=== PATIENT | male | born 1955 | race Caucasian/White ===

== ENCOUNTER 2018-07-29 09:46 | Emergency (ER) | payer BC ==
[~2018-07-29] VITALS: Ht 198.1 cm; Wt 147.4 kg
--- NOTE | 2018-07-29 11:01 | PHYS DOC ---
Past History Past Medical History: A-Fib, CAD, Diabetes Past Surgical History: Pacemaker Alcohol Use: None Drug Use: None Adult General Chief Complaint Chief Complaint: HEAD INJURY/TRAUMA [facility] HPI Patient is a 63 year old male who presents with complaining of head injury and possible TIA. Patient states he hit his back of his head while tried to get inside of a car at his work one week ago without loss of consciousness. Patient complaining of intermittent episodes of occipital headache and dizziness and nausea without confusion, fever and chills, focal neuro deficit, blurred or double vision. Patient also states he had another fall from several stairs 5 weeks ago and almost passed out without seeking medical attention. Patient was seen by his chiropractor regarding chronic neck pain and recommended to come to emergency room for possible TIA because of episodes of dizziness. Review of Systems Review of Systems Constitutional: Denies fever or chills [] Eyes: Denies change in visual acuity, redness, or eye pain [] HENT: Denies nasal congestion or sore throat [] Respiratory: Denies cough or shortness of breath [] Cardiovascular: No additional information not addressed in HPI [] GI: Denies abdominal pain, vomiting, bloody stools or diarrhea [] : Denies dysuria or hematuria [] Musculoskeletal: Denies back pain or joint pain [] Integument: Denies rash or skin lesions [] Neurologic: Reports dizziness and headache, focal weakness or sensory changes [] Endocrine: Denies polyuria or polydipsia [] All other systems were reviewed and found to be within normal limits, except as documented in this note. Allergies Allergies Allergies Coded Allergies Type Severity Reaction Last Updated Verified No Known Drug Allergies 07/29/18 No Physical Exam Physical Exam Constitutional: Well developed, well nourished, no acute distress, non-toxic appearance. [] HENT: Normocephalic, atraumatic, bilateral external ears normal, oropharynx moist, no oral exudates, nose normal. [] Eyes: PERRLA, EOMI, conjunctiva normal, no discharge. [] Neck: Normal range of motion, no tenderness, supple, no stridor. [] Cardiovascular:Heart rate regular rhythm, no murmur [] Lungs & Thorax: Bilateral breath sounds clear to auscultation [] Abdomen: Bowel sounds normal, soft, no tenderness, no masses, no pulsatile masses. [] Skin: Warm, dry, no erythema, no rash. [] Back: No tenderness, no CVA tenderness. [] Extremities: No tenderness, no cyanosis, no clubbing, ROM intact, no edema. [] Neurologic: Alert and oriented X 3, normal motor function, normal sensory function, no focal deficits noted. [] Psychologic: Affect normal, judgement normal, mood normal. [] Current Patient Data Vital Signs Vital Signs Date Time Temp Pulse Resp B/P (MAP) Pulse Ox O2 Delivery O2 Flow Rate FiO2 07/29/18 09:50 97.9 72 16 95 Room Air EKG EKG [] Radiology/Procedures Radiology/[place] [address] IMAGING REPORT Signed PATIENT: MORALES ZHU ACCOUNT: [id number] : 1955 LOCATION: ER AGE: 63 SEX: M EXAM STATUS: REG ER ORD. PHYSICIAN: LOVE BARKSDALE MD REASON: head injury PROCEDURE: CT HEAD WO CONTRAST CT HEAD WO CONTRAST History: Fall 2 weeks ago, continued nausea, dizziness, possible TIA Comparison: None. Technique: Noncontrast CT imaging was performed of the head. Exposure: One or more of the following individualized dose reduction techniques were utilized for this examination: 1. Automated exposure control 2. Adjustment of the mA and/or kV according to patient size 3. Use of iterative reconstruction technique. Findings: No acute extra-axial or parenchymal hemorrhage is identified. There is no significant intra-axial mass effect, midline shift, or extra-axial fluid collection. The falcon-white differentiation of the major vascular territories is preserved. Ventricular size is within normal limits. There is complete opacification of the bilateral maxillary sinuses, also opacification of mid to anterior left ethmoid air cells and near complete opacification of the left frontal sinus. No acute calvarial abnormality is identified. There has been left mastoidectomy. Impression: 1. No acute intracranial abnormality is identified. 2. There is complete opacification bilateral maxillary sinuses and mid to anterior left ethmoid air cells and near complete opacification of the left frontal sinus. Electronically signed by: Delfino Duran MD (07/29/2018 10:59 AM) [id number] DICTATED AND SIGNED BY: DELFINO DURAN MD DATE: 07/29/18 1056 CC: LOVE BARKSDALE MD; PCP,NO ~ Course & Med Decision Making Course & Med Decision Making Pertinent Imaging studies reviewed. (See chart for details) Evaluation of patient in ER showed 63-year-old male patient with 2 head injury and complaining of dizziness and nausea and headache intermittently patient had unremarkable physical exam and CT of head except for pansinusitis. Patient did not have history of sinusitis or problems with sinus infection. Plan to give prescription for Augmentin and instruction to avoid of brain activity. Dragon Disclaimer Dragon Disclaimer This electronic medical record was generated, in whole or in part, using a voice recognition dictation system. Departure Departure: Impression: Primary Impression: Concussion Additional Impression: Sinusitis Disposition: HOME, SELF-CARE (at 1131) Condition: STABLE Referrals: PCP,AMBROSE (PCP) Patient Instructions: Concussion and Brain Injury, Sinusitis Additional Instructions: Drink plenty of liquids Follow-up with your primary care physician in 3-5 days Return to ER if not getting better Scripts Amoxicillin/Potassium Clav (AUGMENTIN 875-125 TABLET) 1 Each Tablet 1 TAB PO BID, #20 TAB Prov: LOVE BARKSDALE MD 07/29/18 Problem Qualifiers LOVE BARKSDALE MD Jul 29, 2018 11:01
[2018-07-29 11:34] VITALS: BP 125/66
[2018-07-29] MEDS ORDERED: AMOX1TAB61 PO (11:34)
== END 2018-07-29 11:43 | disposition home or self-care (01) ==
LOC: ER 09:46
DX: S06.0X0A Concussion without loss of consciousness, initial encounter (principal); J32.8 Other chronic sinusitis; I48.91 Unspecified atrial fibrillation; I25.10 Atherosclerotic heart disease of native coronary artery without angina pectoris; E11.9 Type 2 diabetes mellitus without complications; Z95.0 Presence of cardiac pacemaker; W20.8XXA Other cause of strike by thrown, projected or falling object, initial encounter; Y93.89 Activity, other specified; Y92.89 Other specified places as the place of occurrence of the external cause; Y99.8 Other external cause status
CPT/HCPCS: 70450; 99284-25